=== PATIENT | male | born 1960 | race Caucasian/White ===

== ENCOUNTER → 2020-05-08 | Outpatient (CLI) | payer OTHER ==
[~2020-05-08] MED LIST: CEFD300C37 PO; DOXY100T PO
== END | disposition home or self-care (01) ==
LOC: PETCFH 08:40
PROVIDERS: ATTEND Internal Medicine Pulmonary Disease
DX: R91.1 Solitary pulmonary nodule (principal); R59.1 Generalized enlarged lymph nodes; I31.3 Pericardial effusion (noninflammatory)
CPT/HCPCS: 78815; A9552